=== PATIENT | female | born 1930 | race Caucasian/White ===

== ENCOUNTER 2018-05-27 16:00 | Emergency (ER) | payer MEDICARE ==
[~2018-05-27] VITALS: Ht 162.6 cm; Wt 39.0 kg
--- NOTE | 2018-05-27 16:42 | Diagnostic Imaging Report ---
INDICATION: Shortness of breath EXAM: Portable chest at 4 PM FINDINGS: There are emphysematous changes in the lungs. Heart size and pulmonary vascularity are normal. The lungs are clear. IMPRESSION: COPD. No acute abnormality is seen. Dictated by: Dictated on workstation # [id number]
[2018-05-27 17:32] LABS: MEAN PLATELET VOLUME 10.7 FL (7.4-10.4); RED CELL DISTRIBUTION WIDTH 15.1 % (10.0-14.5); WHITE BLOOD COUNT 12.4 10^3/uL (4.3-11.0)
[2018-05-27] MEDS ORDERED: predniSONE 20 MG TAB PO STA (17:37)
[2018-05-27] MEDS ORDERED: RT-ALBUTEROL/IPRATROPIUM 3 ML (DUONEB) VIAL INH STA (17:37)
--- NOTE | 2018-05-27 17:42 | ED Cough/URI ---
General Chief Complaint: Respiratory Problems Stated Complaint: SOB Nursing Triage Note: Pt to ED in wheelchair. Pt c/o SOB and sever lower back pain that is radiating down Lleg. Pt reports this has been an ongoing problem, but symptoms have worsened today. Pt reports hx of COPD and CHF, and having been in the hospital for pneumonia last month. Sepsis Screen: No Definite Risk History of Present Illness Date Seen by Provider: May 27, 2018 Time Seen by Provider: 17:28 This is an 87-year-old female with a history of COPD and hypertension who complains of cough and increased shortness of breath over the last couple of weeks since being treated for pneumonia. No fevers. No chest pain. She does also mention some pain in the left lower back that radiates down the buttock and down the leg for the last 2 days. She specifically denies incontinence or retention of urine or stool fevers, weakness, numbness, or tingling. No abdominal pain. She is using albuterol at home but feels like she has never taken steroids/prednisone at any point in the past. Albuterol provides transient relief. Allergies and Home Medications Allergies Uncoded Allergies: PENICILLIN (Allergy, Unknown, 05/27/18) Patient Home Medication List Home Medication List Reviewed: Yes Review of Systems Review of Systems Constitutional: no symptoms reported EENTM: no symptoms reported Respiratory: see HPI Cardiovascular: no symptoms reported Gastrointestinal: no symptoms reported Genitourinary: no symptoms reported Musculoskeletal: see HPI Skin: no symptoms reported Psychiatric/Neurological: No Symptoms Reported Hematologic/Lymphatic: No Symptoms Reported Past Exrszdg-Shlpky-Yxyvyf Hx Past Med/Social Hx: Reviewed Nursing Past Med/Soc Hx Patient Social History Alcohol Use: Denies Use Recreational Drug Use: No Smoking Status: Former Smoker Type Used: Cigarettes 2nd Hand Smoke Exposure: No Recent Foreign Travel: No Contact w/Someone Who Travel: No Recent Infectious Disease Expo: No Recent Hopitalizations: Yes (apr 20 for pneumonia) Physical Abuse: No Sexual Abuse: No Seasonal Allergies Seasonal Allergies: No Past Medical History Surgeries: No Respiratory: Yes COPD Cardiac: Yes Coronary Artery Disease, Hypertension Neurological: No Genitourinary: No Gastrointestinal: No Musculoskeletal: No Endocrine: No HEENT: No Cancer: No Psychosocial: No Integumentary: No Blood Disorders: No Physical Exam Vital Signs - First Documented 05/27/18 16:42 Temp 99.3 Pulse 75 Resp 17 B/P (MAP) 158/88 (111) Pulse Ox 95 O2 Delivery Room Air Capillary Refill : Less Than 3 Seconds Height: 5'4.00" Weight: 86lbs. oz. [id number]; BMI Method:Stated General Appearance: no apparent distress (speaking in full sentences) HEENT: PERRL/EOMI Neck: supple Respiratory: other (good air exchange bilaterally with moderate expiratory wheezes bilaterally) Cardiovascular: normal peripheral pulses, regular rate, rhythm, no edema Gastrointestinal: non tender, soft Neurologic/Psychiatric: other (motor is 5 out of 5 in the bilateral lower extremities, sensation to light touch is intact and symmetrical in the bilateral lower extremities.) Skin: warm/dry No midline tenderness on the back, there is mild tenderness in the lower lumbar musculature on the left side Progress/Results/Core Measures Suspected Sepsis Recent Fever Within 48 Hours: No Infection Criteria Present: None New/Unexplained Altered Menta: No Sepsis Screen: No Definite Risk SIRS Temperature:99.3 Pulse: 75 Respiratory Rate: 17 Laboratory Tests 05/27/18 17:05: White Blood Count 12.4H Blood Pressure 158 /88 Mean: 111 Laboratory Tests 05/27/18 17:05: Creatinine 0.86, Platelet Count 225 Results/Orders Lab Results Laboratory Tests Test 05/27/18 17:05 Range/Units White Blood Count 12.4 H 4.3-11.0 10^3/uL Red Blood Count 4.29 L 4.35-5.85 10^6/uL Hemoglobin 13.0 11.5-16.0 G/DL Hematocrit 40 35-52 % Mean Corpuscular Volume 94 80-99 FL Mean Corpuscular Hemoglobin 30 25-34 PG Mean Corpuscular Hemoglobin Concent 32 32-36 G/DL Red Cell Distribution Width 15.1 H 10.0-14.5 % Platelet Count 225 130-400 10^3/uL Mean Platelet Volume 10.7 H 7.4-10.4 FL Sodium Level 140 135-145 MMOL/L Potassium Level 4.2 3.6-5.0 MMOL/L Chloride Level 104 98-107 MMOL/L Carbon Dioxide Level 24 21-32 MMOL/L Anion Gap 12 5-14 MMOL/L Blood Urea Nitrogen 22 H 7-18 MG/DL Creatinine 0.86 0.60-1.30 MG/DL Estimat Glomerular Filtration Rate > 60 BUN/Creatinine Ratio 26 Glucose Level 102 70-105 MG/DL Calcium Level 9.1 8.5-10.1 MG/DL Troponin T 24 H <=10 NG/L Pro-B-Type Natriuretic Peptide 921.6 H <75.0 PG/ML My Orders Orders - LISA YBARRA DO Ekg Tracing (05/27/18 16:03) Chest 1 View Ap/Pa Only (05/27/18 16:03) Troponin T (05/27/18 16:03) Probnp Fs (05/27/18 16:03) Cbc No Diff (05/27/18 16:03) Basic Metabolic Panel (05/27/18 16:03) Lumbar Spine 2 Or 3 View (05/27/18 17:37) Tramadol Tablet (Ultram Tablet) (05/27/18 17:37) Prednisone Tablet (Deltasone Tablet) (05/27/18 17:37) Albuterol/Ipra Inhalation Soln (Duoneb I (05/27/18 17:37) Svn Small Volume Nebulizer (05/27/18 17:37) Vital Signs/I&O 05/27/18 16:42 Temp 99.3 Pulse 75 Resp 17 B/P (MAP) 158/88 (111) Pulse Ox 95 O2 Delivery Room Air Capillary Refill : Less Than 3 Seconds Blood Pressure Mean: 111 Progress Note : Progress Note This is an 87-year-old female with a history of COPD here with coughing, wheezing, shortness of breath and also mentions left low back pain radiating into the leg. We will check an EKG, chest x-ray, basic labs. We'll treat with steroids, bronchodilators, we'll give tramadol for her back pain which is consistent with sciatica syndrome. She is neurovascularly intact on exam. She is nontoxic in appearance. An x-ray given age to evaluate for significant lumbar spine compression fracture or other bony lesion. Departure Impression Primary Impression: COPD exacerbation Additional Impression: Sciatica of left side Disposition: 01 HOME, SELF-CARE Condition: Stable Departure-Patient Inst. Referrals: NO,LOCAL PHYSICIAN (PCP) Primary Care Physician Patient Instructions: Exacerbation of COPD, Low Back Pain (DC) Scripts Tramadol HCl (Tramadol HCl) 50 Mg Tablet 50 MG PO BID PRN for BACK PAIN for 4 Days, #10 TAB Prov: LISA YBARRA DO 05/27/18 Prednisone (Prednisone) 20 Mg Tab 40 MG PO DAILY, #6 TAB 0 Refills Prov: LISA YBARRA DO 05/27/18 Azithromycin (Azithromycin) 250 Mg Tablet 250 MG PO UD, #6 TAB TAKE 2 TABLETS ON DAY ONE THEN TAKE 1 TABLET DAILY FOR FOUR MORE DAYS Prov: LISA YBARRA DO 05/27/18 LISA YBARRA DO May 27, 2018 17:42
[2018-05-27 17:51] LABS: BUN/CREATININE RATIO 26; CARBON DIOXIDE 24 MMOL/L (21-32); CHLORIDE 104 MMOL/L (98-107); CREATININE SERUM 0.86 MG/DL (0.60-1.30); GFR ESTIMATED > 60; GLUCOSE 102 MG/DL (70-105); POTASSIUM 4.2 MMOL/L (3.6-5.0); SODIUM 140 MMOL/L (135-145)
[2018-05-27 17:52] LABS: CALCIUM 9.1 MG/DL (8.5-10.1)
--- NOTE | 2018-05-27 18:01 | Diagnostic Imaging Report ---
INDICATION: Low back pain. FINDINGS: Three views. There is moderate levoscoliosis. Body height is well maintained. There is narrowing of the disc spaces throughout the lumbar spine. No evidence of pars defect. Degenerative facet changes are noted. There is some hypertrophic lipping of the endplates noted throughout the lumbar spine mild in nature. Pedicles are intact. Aorta is calcified with mild dilatation. Maximal diameter is approximately 2.7 cm. IMPRESSION: Levoscoliosis with moderate diffuse degenerative disc and facet disease. No acute abnormalities demonstrated. Dictated by: Dictated on workstation # [id number]
[2018-05-27] MEDS ORDERED: AZIT250T12 PO (18:21)
[2018-05-27] MEDS ORDERED: PRD20T PO (18:21)
[2018-05-27] MEDS ORDERED: TRAM50TA2 PO (18:21)
[2018-05-27 18:30] VITALS: BP 160/87
--- NOTE | 2018-05-27 18:40 | NUR ---
EKG performed on pt. There was a malfunction with EKG machine. EKG was not saved by machine, and this was not noted until after pt was discharged. Unable to reprint EKG. Pt was sinus rhythm at time EKG was performed.
== END 2018-05-27 18:34 | disposition home or self-care (01) ==
LOC: EDUNIT# 16:00 → ER FS 16:02
DX: J44.1 Chronic obstructive pulmonary disease with (acute) exacerbation (principal); M54.42 Lumbago with sciatica, left side; I11.0 Hypertensive heart disease with heart failure; I50.9 Heart failure, unspecified; I25.10 Atherosclerotic heart disease of native coronary artery without angina pectoris; Z87.01 Personal history of pneumonia (recurrent); Z88.0 Allergy status to penicillin; Z87.891 Personal history of nicotine dependence
CPT/HCPCS: 36415; 71045; 72100; 80048; 83880; 84484; 85027